=== PATIENT | female | born 1990 | race African-American/Black ===

== ENCOUNTER 2016-10-09 12:16 | Emergency (ER) | payer SELFPAY ==
[2016-10-09] MEDS ORDERED: Ondansetron ODT 4 MG TAB ONE (12:25)
[2016-10-09 12:34] LABS: Pregnancy Test - Urine (BHCG) Negative (Negative); Pregu Control Background? CLEAR/WHITE (CLR/WHITE); Pregu Control Bar Appear? YES (CONTROL BAR); Specific Gravity 1.025 (1.002-1.036)
[2016-10-09 12:35] LABS: Glucose, Urine (Dipstick) Negative (Negative); Leukocyte Negative (Negative); Nitrite Negative (Negative); Protein, Urine (Dipstick) 30 mg/dL (Neg-Trace); Specific Gravity, Urine 1.025 (1.005-1.030); pH, Urine 5.5 (5.0-9.0)
[2016-10-09 12:36] LABS: Bilirubin Negative (Negative); Blood, Urine Negative (Negative); Urobilinogen 0.2 mg/dL (0.2-1.0)
[2016-10-09 12:38] LABS: Clarity Clear (Clear)
[2016-10-09 12:39] LABS: Bacteria/HPF Rare-Few HPF (None Seen); RBC/HPF 0-3 HPF (0-3); WBC/HPF 0-3 HPF (0-3)
[2016-10-09] MEDS ORDERED: Meclizine HCl 25 MG TAB ONE (12:49)
== END 2016-10-09 13:05 | disposition home or self-care (01) ==
LOC: MADERS 12:16
DX: H81.399 Other peripheral vertigo, unspecified ear (principal)
CPT/HCPCS: 81001; 81025; 99284; Q0162

== ENCOUNTER 2017-03-19 20:25 | Emergency (ER) | payer SELFPAY ==
[2017-03-19] MEDS ORDERED: Ondansetron ODT 4 MG TAB ONE (20:52)
== END 2017-03-19 21:02 | disposition home or self-care (01) ==
LOC: MADERS 20:25
DX: K52.9 Noninfective gastroenteritis and colitis, unspecified (principal); I10 Essential (primary) hypertension
CPT/HCPCS: 99283; Q0162

== ENCOUNTER 2017-04-30 08:03 | Emergency (ER) | payer SELFPAY | END 2017-04-30 09:04 | disposition home or self-care (01) | LOC: MADERS 08:03 | DX: J06.9 Acute upper respiratory infection, unspecified (principal); I10 Essential (primary) hypertension | CPT/HCPCS: 99283 ==

== ENCOUNTER 2017-10-05 22:07 | Emergency (ER) | payer SELFPAY | END 2017-10-05 23:00 | disposition home or self-care (01) | LOC: MADERS 22:07 | DX: I83.891 Varicose veins of right lower extremity with other complications (principal); I10 Essential (primary) hypertension | CPT/HCPCS: 99283 ==

== ENCOUNTER 2018-12-18 23:30 | Emergency (ER) | payer SELFPAY ==
[2018-12-19] MEDS ORDERED: Ibuprofen 800 MG TAB ONE
[2018-12-19] MEDS ORDERED: Acetaminophen 500 MG TAB ONE
== END 2018-12-19 00:05 | disposition home or self-care (01) ==
LOC: MADERS 23:30
DX: K02.9 Dental caries, unspecified (principal); I10 Essential (primary) hypertension
CPT/HCPCS: 99282

== ENCOUNTER 2019-01-05 05:49 | Emergency (ER) | payer SELFPAY ==
[2019-01-05 06:31] LABS: Pregnancy Test - Urine (BHCG) Negative (Negative)
[2019-01-05 06:32] LABS: Pregu Control Background? CLEAR/WHITE (CLR/WHITE); Pregu Control Bar Appear? YES (CONTROL BAR); Specific Gravity 1.025 (1.002-1.036)
== END 2019-01-05 07:52 | disposition home or self-care (01) ==
LOC: MADERS 05:49
DX: R42 Dizziness and giddiness (principal); I10 Essential (primary) hypertension
CPT/HCPCS: 81025; 99284

== ENCOUNTER 2019-02-26 03:55 | Emergency (ER) | payer SELFPAY | END 2019-02-26 05:18 | disposition home or self-care (01) | LOC: MADERS 03:55 | DX: J02.9 Acute pharyngitis, unspecified (principal); R05 Cough; R50.9 Fever, unspecified | CPT/HCPCS: 87081; 87430; 99283 ==

== ENCOUNTER 2019-12-26 10:14 | Emergency (ER) | payer SELFPAY ==
[2019-12-26] MEDS ORDERED: Ketorolac Tromethamine 60 MG/2 ML VIAL ONE (10:45)
[2019-12-26] MEDS ORDERED: Ondansetron ODT 4 MG TAB ONE (10:54)
--- NOTE | 2019-12-26 11:02 | RAD ---
EXAM: CHEST TWO VIEWS 12/26/2019 10:59 AM HISTORY: Dry cough with fever with history of Covid exposure COMPARISON: None FINDINGS: Lungs: There is airspace opacity in the right upper lobe suspicious for pneumonia. Patchy opacities are present within the right middle lobe. Heart: Normal in size and contour. Pulmonary Vessels: Normal. Costophrenic Angles: Clear. Pneumothorax: None. Osseous Structures: Intact. Additional Findings: None. IMPRESSION: Airspace opacity right upper lobe and right middle lobe suspicious for pneumonia.
[2019-12-26] MEDS ORDERED: Sodium Chloride 0.9% 100 ML ONE (11:35)
[2019-12-26] MEDS ORDERED: Sodium Chloride 0.9% 1,000 ML ONE (11:35)
[2019-12-26] MEDS ORDERED: Cefepime 2 GM VIAL ONE (11:35)
[2019-12-26 12:12] LABS: #Lymphocytes 1.6 thou/uL (1.20-3.40); #Monocytes 0.3 thou/uL (0.11-0.59); #Neutrophils 1.5 thou/uL (1.40-6.50); %Basophils 0.5 % (0.0-1.0); %Eosinophils 0.1 % (0.0-10.0); %Lymphocytes 46.6 % (21.0-51.0); %Monocytes 8.7 % (0.0-10.0); %Neutrophils 44.1 % (42.0-75.0); Hemoglobin 10.9 g/dL (12.0-16.0); Mean Corpuscular HGB CONC 31.4 g/dL (32.0-36.0); Mean Corpuscular Hemoglobin 27.5 pg (27.0-31.0); Mean Corpuscular Volume 87.6 fL (78.0-98.0); Platelet Count 268 thou/uL (130-400); RBC Distribution Width 13.7 % (11.5-14.5); Red Blood Cell (RBC) Count 3.98 mill/uL (4.20-5.40); White Blood Cell (WBC) Count 3.3 thou/uL (4.8-10.8)
[2019-12-26] MEDS ORDERED: Azithromycin 500 MG VIAL ONE (12:19)
[2019-12-26] MEDS ORDERED: Sodium Chloride 0.9% 250 ML 250 ML ONE (12:19)
[2019-12-26] MEDS ORDERED: Sodium Chloride 0.9% 500 ML ONE (12:20)
[2019-12-26 12:21] LABS: D-Dimer Test 0.42 *mcg/mL (0.27-0.43)
[2019-12-26 12:30] LABS: ALT (SGPT) 17 U/L (8-55); AST (SGOT) 26 U/L (5-34); Albumin 3.7 g/dL (3.5-5.0); Alkaline Phosphatase 41 U/L (40-110); Anion Gap 15 mmol/L (10-20); BUN (Urea Nitrogen) 8 mg/dL (7.0-18.7); Bilirubin, Total Less than 0.2 mg/dL (0.2-1.2); Calc. Creatinine Clearance 0 mL/min (70-130); Calcium 8.2 mg/dL (7.8-10.44); Carbon Dioxide 22 mmol/L (22-29); Chloride 102 mmol/L (98-107); Estimated GFR-MDRD 90; Globulin 3.7 g/dL (2.4-3.5); Glucose 94 mg/dL (70-105); Potassium 4.2 mmol/L (3.5-5.1); Protein, Total 7.4 g/dL (6.0-8.3); Sodium 135 mmol/L (136-145)
[2019-12-27 14:54] LABS: SARS-CoV-2 MS2 Positive; SARS-CoV-2 N Gene Positive; SARS-CoV-2 S Gene Positive; SARS-CoV-2 by NAA DETECTED (NotDetected); SARS-CoV-2 orf1ab Positive
== END 2019-12-26 13:54 | disposition short-term general hospital (02) ==
LOC: MADERS 10:14
DX: A41.89 Other specified sepsis (principal); U07.1 COVID-19; J12.89 Other viral pneumonia; I10 Essential (primary) hypertension
CPT/HCPCS: 71046; 80053; 83605; 83735; 85025; 85379; 85384; 87040; 87635; 87804; 96365; 96367; 96368; 96372; J0456; J0692; J1885; J3370; J3490; J7030; J7050; Q0162; U0003

== ENCOUNTER 2019-12-28 19:25 | Emergency (ER) | payer SELFPAY ==
[2019-12-28] MEDS ORDERED: Ondansetron ODT 4 MG TAB ONE (20:10)
[2019-12-28] MEDS ORDERED: Acetaminophen 325 MG TAB ONE (20:10)
== END 2019-12-28 20:23 | disposition home or self-care (01) ==
LOC: MADERS 19:25
DX: U07.1 COVID-19 (principal); J12.89 Other viral pneumonia; I10 Essential (primary) hypertension
CPT/HCPCS: 99283; Q0162

== ENCOUNTER 2021-07-26 21:35 | Emergency (ER) | payer OTHER, SELFPAY | END 2021-07-26 22:25 | disposition home or self-care (01) | LOC: MADERS 21:35 | DX: S80.11XA Contusion of right lower leg, initial encounter (principal); W22.8XXA Striking against or struck by other objects, initial encounter; I10 Essential (primary) hypertension | CPT/HCPCS: 99283 ==

== ENCOUNTER 2021-12-27 15:32 | Emergency (ER) | payer BC, SELFPAY ==
[2021-12-27] MEDS ORDERED: Orphenadrine Citrate 60 MG/2 ML VIAL ONE (17:01)
[2021-12-27 17:08] LABS: Bilirubin Negative (Negative); Blood, Urine Negative (Negative); Glucose, Urine (Dipstick) Negative (Negative); Ketone, Urine Negative (Negative); Leukocyte Negative (Negative); Nitrite Negative (Negative); Protein, Urine (Dipstick) Negative (Neg-Trace); Urobilinogen 0.2 mg/dL (Less than 2); pH, Urine 5.5 (5.0-9.0)
[2021-12-27 17:09] LABS: Pregnancy Test - Urine (BHCG) Negative (Negative); Pregu Control Background? CLEAR/WHITE (CLR/WHITE); Pregu Control Bar Appear? YES (CONTROL BAR); Specific Gravity 1.027 (1.002-1.036)
[2021-12-27 17:10] LABS: Clarity Hazy (Clear); Specific Gravity, Urine 1.027 (1.002-1.036)
== END 2021-12-27 17:36 | disposition home or self-care (01) ==
LOC: MADERS 15:32
DX: M54.16 Radiculopathy, lumbar region (principal)
CPT/HCPCS: 81003; 81025; 87086; 96372; 99283; J2360

== ENCOUNTER 2023-09-07 16:03 | Emergency (ER) | payer BC, OTHER ==
[2023-09-07] MEDS ORDERED: Ondansetron PF 4 MG/2 ML Vial ONE (16:42)
[2023-09-07 16:50] LABS: ALT (SGPT) 15 U/L (8-55); AST (SGOT) 13 U/L (5-34); Albumin 3.9 g/dL (3.5-5.0); Alkaline Phosphatase 68 U/L (40-110); Anion Gap 15 mmol/L (10-20); BUN (Urea Nitrogen) 6 mg/dL (7.0-18.7); Bilirubin, Total 0.3 mg/dL (0.2-1.2); Calc. Creatinine Clearance 0 mL/min (70-130); Calcium 9.6 mg/dL (7.8-10.44); Carbon Dioxide 21 mmol/L (22-29); Chloride 103 mmol/L (98-107); Estimated GFR 76; Globulin 4.5 g/dL (2.4-3.5); Glucose 112 mg/dL (70-105); Potassium 4.3 mmol/L (3.5-5.1); Protein, Total 8.4 g/dL (6.0-8.3); Sodium 135 mmol/L (136-145); Troponin I Less than 0.010 ng/mL (< 0.028)
[2023-09-07 16:55] LABS: Bilirubin Negative (Negative); Blood, Urine Trace (Negative); Glucose, Urine (Dipstick) Negative (Negative); Ketone, Urine Negative (Negative); Leukocyte Negative (Negative); Nitrite Negative (Negative); Protein, Urine (Dipstick) Negative (Neg-Trace); Urobilinogen 0.2 mg/dL (Less than 2); pH, Urine 7.5 (5.0-9.0)
[2023-09-07 16:57] LABS: Clarity Hazy (Clear)
[2023-09-07 16:58] LABS: Pregnancy Test - Urine (BHCG) Negative (Negative); Pregu Control Background? CLEAR/WHITE (CLR/WHITE); Pregu Control Bar Appear? YES (CONTROL BAR)
[2023-09-07 17:03] LABS: Bacteria/HPF Rare-Few HPF (None Seen); CAUTI Indications for Culture Pelvic or flank pain; RBC/HPF 0-3 HPF (0-3); Urine Culture Reflex No No; WBC/HPF 0-3 HPF (0-3)
[2023-09-07 17:05] LABS: Hematocrit 37.9 % (36.0-47.0); Hemoglobin 11.2 g/dL (12.0-16.0); Mean Corpuscular HGB CONC 29.6 g/dL (32.0-36.0); Mean Corpuscular Hemoglobin 25.6 pg (27.0-31.0); Mean Corpuscular Volume 86.4 fl (78.0-98.0); Mean Platelet Volume 5.8 fL (7.4-10.4); Platelet Count 441 10x3/uL (130-400); RBC Distribution Width 14.5 % (11.5-14.5); Red Blood Cell (RBC) Count 4.38 mill/uL (4.20-5.40); White Blood Cell (WBC) Count 9.2 10x3/uL (4.8-10.8)
[2023-09-07 17:13] LABS: Influenza A by NAA Not Detected (NotDetected); Influenza B by NAA Not Detected (NotDetected); SARS-CoV-2 NAA Rapid Test Not Detected (NotDetected)
[2023-09-07 17:13] LABS: Band 1 % (5-11); Lymphocytes 19 % (21-51); MDiff Complete? YES; Manual Diff?? YES; Monocytes 2 % (0-10); Neutrophil 69 % (42-75); Reactive Lymphocytes 8 % (0-10)
[2023-09-07 17:14] LABS: Platelet Adequacy Comment Appears Increased
[2023-09-07] MEDS ORDERED: Amoxicillin/Potassium Clav 875 MG TAB ONE (17:22)
[2023-09-07] MEDS ORDERED: Ketorolac Tromethamine 30 MG (1 mL) VIAL ONE (17:22)
[2023-09-07] MEDS ORDERED: Dexamethasone 10 MG/ML VIAL ONE (17:22)
[2023-09-07] MEDS ORDERED: Acetaminophen 500 MG TAB ONE (17:35)
== END 2023-09-07 18:00 | disposition home or self-care (01) ==
LOC: MADERS 16:03
DX: J02.0 Streptococcal pharyngitis (principal); E86.0 Dehydration; M79.10 Myalgia, unspecified site; I10 Essential (primary) hypertension
CPT/HCPCS: 71046; 80053; 81001; 81025; 84484; 85025; 87430; 93005; 96361; 96374; 96375; J1100; J1885; J2405